=== PATIENT | male | born 1995 | race Caucasian/White ===

== ENCOUNTER 2017-02-12 04:22 | Emergency (ER) | payer MEDICAID ==
[2017-02-12 04:35] VITALS: BP 136/83
--- NOTE | 2017-02-12 04:50 | EDM.PDOC ---
ED HISTORY OF PRESENT ILLNESS - General Chief Complaint: Respiratory Problem Stated Complaint: WHEEZING Time Seen by Provider: 02/12/17 04:32 Source of Information: Reports: Patient, RN notes reviewed, Significant Other ( Girlfriend) History Limitations: Reports: No limitations - History of Present Illness INITIAL COMMENTS - FREE TEXT/NARRATIVE: The patient states that he developed trouble breathing around 02:00 this morning. He describes difficulty in taking a deep breath, feeling like his chest was tight. He did not have any difficulty breathing out. He states that he was wheezing, and had an occasional cough. He states that he has had similar symptoms many times over the past decade. He has a history of seasonal allergies, diagnosed by an Administrative Professional. He states that he received allergy injections for about 3 years when he was younger. He has not previously been evaluated for asthma, however, he does have a Ventolin inhaler. He states that he was around grain dust yesterday, which may have caused an exacerbation of his allergies. He has taken 4 puffs of his albuterol MDI tonight, with no relief. He also took 2 [id number] tablets (50 mg) of Benadryl. - Related Data Allergies/ADRs: Allergies Allergy/AdvReac Type Severity Reaction Status Date / Time No Known Allergies Allergy Verified 02/12/17 04:35 Home Meds: Home Meds . [No Known Home Meds] 02/12/17 [History] Past Medical History HEENT History: Reports: Allergic rhinitis - Past Surgical History HEENT Surgical History: Reports: Oral surgery ([place] teeth extraction) Musculoskeletal Surgical History: Reports: Shoulder surgery (right, arthroscopic ) Social & Family History - Tobacco Use Smoking Status *Q: Never Smoker - Caffeine Use Caffeine Use: Reports: None - Alcohol Use Alcohol Use History: Yes Alcohol Use Frequency: Socially - Recreational Drug Use Recreational Drug Use: No - Living Situation & Occupation Living situation: Reports: single, with family Occupation: student ([email or web address]) ED ROS GENERAL - Review of Systems Review Of Systems: See Below Constitutional: Reports: no symptoms HEENT: Reports: No symptoms Respiratory: Reports: No Symptoms Cardiovascular: Reports: No symptoms Endocrine: Reports: no symptoms GI/Abdominal: Reports: No symptoms : Reports: no symptoms Musculoskeletal: Reports: no symptoms Skin: Reports: no symptoms Neurological: Reports: No Symptoms Psychiatric: Reports: No symptoms Hematologic/Lymphatic: Reports: no symptoms Immunologic: Reports: no symptoms ED EXAM, GENERAL - Physical Exam Exam: See Below Exam Limited By: No limitations General Appearance: alert, WD/WN, no apparent distress Eye Exam: bilateral eye: EOMI, normal inspection Ears: normal external exam, normal canal, hearing grossly normal, normal TMs Ear Exam: bilateral ear: auricle normal, canal normal, TM normal Nose: normal inspection, no blood, other (Mild bilateral nasal mucosal edema) Throat/Mouth: Normal inspection, Normal lips, Normal teeth, Normal gums, Normal voice, No airway compromise, Other (Pharyngeal streaking, consistent with postnasal drip) Head: atraumatic, normocephalic Neck: normal inspection, full range of motion. No: lymphadenopathy (L), lymphadenopathy (R) Respiratory/Chest: no respiratory distress, lungs clear, normal breath sounds, no accessory muscle use. No: wheezing Cardiovascular: normal peripheral pulses, regular rate, rhythm, no edema, no gallop, no JVD, no murmur, no rub Peripheral Pulses: 4+: radial (L), radial (R) GI/Abdominal: normal bowel sounds, soft, non tender, no organomegaly, no distention, no abnormal bruit, no mass (Male) Exam: Deferred Rectal (Males) Exam: Deferred Back Exam: normal inspection, full range of motion, NT Extremities: normal inspection, normal range of motion, no pedal edema, normal capillary refill Neurological: alert, oriented, normal cognition, no motor/sensory deficits Psychiatric: normal affect Skin Exam: Warm, Dry, Intact, Normal color, No rash Lymphatic: no adenopathy Course - Vital Signs Last Recorded V/S: Last Vital Signs Temp 36.6 C 02/12/17 04:33 Pulse 70 02/12/17 04:33 Resp 18 02/12/17 04:33 BP 136/83 02/12/17 04:33 Pulse Ox 100 02/12/17 04:33 - Re-Assessments/Exams Free Text/Narrative Re-Assessment/Exam: 02/12/17 04:45 On physical examination, the patient's lungs are entirely clear with no prolonged exhalation or wheezes. I cannot speak to what his lungs sounded like prior to his using the albuterol, but at this time, I see no suggestion of an asthma exacerbation. The dyspnea that he has been experiencing may be merely due to nasal congestion. Going forward, I am recommending that he obtain formal evaluation for asthma with pulmonary function tests. Departure - Departure Time of Disposition: 04:47 Disposition: Home, Self-Care 01 Condition: good Clinical Impression: Dyspnea Referrals: PCP,Not In Area [Primary Care Provider] - Forms: ED Department Discharge Additional Instructions: You were seen in the emergency room for trouble breathing and possible wheezing. On examination, your lungs are clear, with good air movement. No wheezes were heard. It is possible that the shortness of breath that you were experiencing is due to nasal congestion, which will make adults feel short of breath, even though there is no shortage of air. Because albuterol is not good for you, you should not take it if you do not have a medical condition, like asthma, that requires it. We recommend you talk to your PCP, Dr. Graham, about getting a referral to a lung doctor ( [employer]) for tests to see if you actually have asthma. If any other problems, please do not hesitate to return to the ER.
== END 2017-02-12 04:55 | disposition home or self-care (01) ==
LOC: JD.ED 04:22
DX: R06.00 Dyspnea, unspecified (principal); Z98.890 Other specified postprocedural states
CPT/HCPCS: 99282; 99284